=== PATIENT | female | born 1970 | race Hispanic/Latino ===

== ENCOUNTER 2019-12-11 02:43 | Emergency (ER) | payer OTHER, SELFPAY ==
--- NOTE | ~2019-12-11 | CT_ITS ---
EXAMINATION: CT abdomen pelvis w con DATE: 12/11/2019 04:36 INDICATION: Right lower quadrant abdominal pain. TECHNIQUE: Computed tomography (CT) of the abdomen and pelvis was performed with 100 mL Omnipaque 350 intravenous contrast. Automated exposure control and iterative reconstruction technique were employe d. The dose-length product was 641.30 mGy-cm. COMPARISON: None. FINDINGS: The visualized portions of the lung bases demonstrate mild atelectasis. No pleural effusion . The heart size is normal. No pericardial effusion. There is a 7 mm cyst in the liver. The gallbladd er, spleen, pancreas, and right adrenal gland are normal. There is a 1.6 cm mass in left adrenal glan d measuring soft tissue attenuation. There are cysts in the kidneys measuring up to 1.3 cm on the rig ht. There is a delayed right-sided contrast nephrogram. There is mild right hydronephrosis and hydrou reter. There is asymmetric edema retrograde kidney. There is a 3 mm stone in distal right ureter. The re is an umbilical hernia containing fat. The periuterine veins and left ovarian vein are enlarged, c onsistent with pelvic venous insufficiency. There are no dilated loops of bowel. The appendix is norm al. There are no pathologically enlarged lymph nodes. There is no free intraperitoneal fluid. IMPRESSION: 1. 3 mm stone in distal right ureter with mild right hydronephrosis and hydroureter. 2. 1.6 cm left adrenal mass. In the absence of known malignancy, this finding is likely an adenoma. Reviewed, dictated and finalized at location A. IMPRESSION: 1. 3 mm stone in distal right ureter with mild right hydronephrosis and hydrour eter. 2. 1.6 cm left adrenal mass. In the absence of known malignancy, this finding i s likely an adenoma.
[2019-12-11 02:48] VITALS: BP 143/81; PULSE 69; TEMP 36.3; O2SAT 100
--- NOTE | 2019-12-11 03:50 | ED.ABDPAIN ---
HPI - Abdominal Pain General Chief Complaint: Abdominal Pain Stated Complaint: r flank pain Time Seen by Provider: 12/11/19 03:45 History of Present Illness HPI narrative: Patient presents with her for right lower abdominal pain since yesterday. She vomited and had sweats at that time. She has had no fever. She has not had this abdominal pain before. She has not had an abdominal surgery. She gauges the pain at 8 out of 10. Associated with nausea and vomiting but not diarrhea. She does not take any prescription medication. The only surgery was a uterine ablation. She does not smoke she rarely drinks, and she does not do marijuana. 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 MD elicited complaint: abdominal pain Pertinent past history: none Onset (ago): day(s) Pain Consistency: constant Location: RLQ Severity: severe Related Data Allergies Allergy/AdvReac Type Severity Reaction Status Date / Time No Known Allergies Allergy Verified 12/11/19 02:51 Review of Systems Review of Systems: Narrative: CONSTITUTIONAL: Denies fever, chills, did have sweats. EYES: Denies visual changes, redness, or discharge. ENT: Denies rhinorrhea, congestion, sore throat, or otalgia. CARDIOVASCULAR: Denies chest pain, palpitations, or edema. RESPIRATORY: Denies cough or dyspnea. GASTROINTESTINAL: She has abdominal pain, nausea, vomiting, but not diarrhea. GENITOURINARY: Denies dysuria or hematuria. SKIN: Denies rash or itching. MUSCULOSKELETAL: Denies back pain, joint pain, or myalgia. NEUROLOGIC: Denies headache, numbness, or weakness. . PMFSH Past Medical History Medical History (Updated 12/11/19 @ 05:03 by Shannon Emery MD) History of dysfunctional uterine bleeding Right lower quadrant abdominal pain Social History Social History (Updated 12/11/19 @ 03:52 by Shannon Emery MD) Smoking status: Never smoker Alcohol intake: current Substance use: never Exam Narrative: Exam Narrative: GENERAL: Well-appearing, well-nourished, and in no acute distress. Zayra lady. HEAD: Normocephalic, atraumatic. EYES: PERRLA and EOMI. ENT: Nares clear, no rhinorrhea or epistaxis. Mucous membranes moist. NECK: Supple. CHEST: Clear to auscultation. No respiratory distress. HEART: Regular rate and rhythm. No murmur heard. Normal peripheral pulses. ABDOMEN: Soft, tenderness in the right lower quadrant, nondistended, normal active bowel sounds. EXTREMITIES: Normal range of motion. No edema. SKIN: Warm, dry, no rash. NEURO: No focal deficits. Alert and oriented x3. PSYCH: Normal mood and affect. Course Reevaluation(s) Reevaluation #1: Went in to tell the patient about her 5 mm kidney stone at the bladder junction. She has never had a kidney stone before. She said she still in a lot of pain. Date: 12/11/19 Time: 05:01 Reevaluation #2: Went back into check on the patient and she is feeling better. I explained how to strain the urine for the stone. She is to take the stone to the urologist next week. Date: 12/11/19 Time: 06:00 Vital Signs Vital signs: Vital Signs Temperature 97.4 F L 12/11/19 02:48 Pulse Rate 69 12/11/19 02:48 Blood Pressure 143/81 H 12/11/19 02:48 Pulse Oximetry 100 12/11/19 02:48 Temperature 97.4 F L 12/11/19 02:48 Pulse Rate 53 L 12/11/19 05:15 Respiratory Rate 18 12/11/19 05:15 Blood Pressure 126/74 12/11/19 05:15 Pulse Oximetry 97 12/11/19 05:15 MDM - Abdominal Pain Medical Records Attestation: I reviewed the patient's medical records. Lab Data Attestation: I reviewed the patient's lab results. Result diagrams: 12/11/19 03:00 12/11/19 03:00 Labs: Lab Results 12/11/19 12/11/19 12/11/19 Range/Units 03:00 03:00 03:49 WBC 15.8 H (4.5-10.0) K/mm3 RBC 4.73 (4.2-5.4) M/mm3 Hgb 13.9 (12.0-15.0) g/dL Hct 41.6 (37.0-47.0) % MCV 87.9 (80-100) fl MCH 29.4 (26-34) pg MCHC 33.4 (32-36) g/dl RDW 12.0 (11.5-14.5) % Plt Count
[2019-12-11] MEDS: MORPHINE SULFATE 4 MG/ML INJ IV PUSH ×2 (03:55→05:11)
[2019-12-11] MEDS: SODIUM CHLORIDE 0.9% IV 1,000 ML 999 ML IV CONT ×2 (03:55→05:10)
[2019-12-11] MEDS: ONDANSETRON INJ 4 MG/2 ML VIAL IV PUSH (03:55)
[2019-12-11 04:00] LABS: Basophils Percent Auto 0.3 % (0.2-1.2); Hematocrit 41.6 % (37.0-47.0); Hemoglobin 13.9 g/dL (12.0-15.0); Immature Granulocyte Absolute 0.06 K/mm3 (0.00-0.031); Immature Granulocyte Percent A 0.4 % (0-0.5); Lymphocytes Absolute Auto 0.86 K/mm3 (0.9-3.2); Lymphocytes Percent Auto 5.4 % (18.3-44.2); Mean Corpuscular HGB Conc 33.4 g/dl (32-36); Mean Corpuscular Hemoglobin 29.4 pg (26-34); Mean Corpuscular Volume 87.9 fl (80-100); Mean Platelet Volume 10.7 fl (7.4-10.4); Monocytes Absolute Auto 0.4 K/mm3 (0.1-0.6); Monocytes Percent Auto 2.3 % (2.6-8.5); Neutrophils Absolute Auto 14.5 K/mm3 (1.3-6.7); Neutrophils Percent Auto 91.6 % (45.5-73.1); Platelet Count Result 245 k/mm3 (150-375); Red Blood Count 4.73 M/mm3 (4.2-5.4); White Blood Count 15.8 K/mm3 (4.5-10.0)
[2019-12-11 04:10] LABS: Add Urine Microscopic? YES; Appearance Urine Clear (Clear); Bacteria Urine Trace /hpf; Bilirubin Urine Negative (Negative); Color Urine Yellow (Yellow); Glucose Urine UA Negative (Negative); Ketones Urine Negative (Negative); Leukocyte Esterase Ur 2+ LEU/UL (Negative); Mucus Urine Rare /lpf; Nitrate Urine Negative (Negative); Protein Urine Negative (Negative); Squamous Epithelial Cell Urine Many /hpf (Few); WBC Urine 16-20 /hpf
[2019-12-11 04:13] LABS: Blood Urea Nitrogen 18 mg/dL (7-17); Calcium 9.6 mg/dL (8.4-10.2); Carbon Dioxide 26 mmol/L (22-30); Chloride 101 mmol/L (98-107); Estimated Glomerular Filt Rate > 60; Glucose 164 mg/dL (65-105); Sodium 137 mmol/L (137-145)
[2019-12-11 04:36] LABS: Blood Urine Negative (Negative)
[2019-12-11] MEDS: TAMSULOSIN HCL 0.4 MG CAPSULE PO (05:11)
[2019-12-11 05:15] VITALS: BP 126/74; PULSE 53; RESP 18; O2SAT 97
[2019-12-11 06:20] VITALS: BP 111/71; PULSE 52; RESP 16; O2SAT 97
== END 2019-12-11 06:21 | disposition home or self-care (01) ==
PROVIDERS: Emergency Provider Emergency Medicine; PCP Family Medicine
DX: N13.2 Hydronephrosis with renal and ureteral calculous obstruction (principal)
CPT/HCPCS: 36415; 74177; 80048; 81001; 81025; 85025; 87077; 87086; 87088; 96361; 96365; 96375; 96376; 99284; A9270; J0696; J2270; J2405; J7030; Q9967

== ENCOUNTER 2019-12-20 07:41 | Outpatient (CLI) | payer OTHER, SELFPAY ==
--- NOTE | ~2019-12-20 | CT_ITS ---
EXAMINATION: CT abdomen pelvis wo con DATE: 12/20/2019 08:16 INDICATION: Right-sided abdominal pain, possible right ureteral calculus TECHNIQUE: Computed tomography (CT) of the abdomen and pelvis was performed without intravenous contr ast. Automated exposure control and iterative reconstruction technique were employed. Exam dose: 212 .07 mGy-cm total exam DLP. COMPARISON: None. FINDINGS: The lung bases are clear of infiltrate or consolidation. Normal heart size. No pericardial or pleural effusion. No hepatic, splenic, pancreatic, right adrenal or left or right renal mass lesion is evident. Hypoattenuating approximately 11.5 mm left adrenal mass is most likely an adrenal adenoma. There is n ow known malignancy. The gallbladder is present. No bile duct or pancreatic duct dilatation. No ureteral calculus or hydroureteronephrosis. Normal caliber of the abdominal aorta. No intraperitoneal or retroperitoneal or pelvic mass lesion or adenopathy or ascites. The urinary bladder, uterus and adnexal areas are unremarkable. Normal appendix. No bowel obstruction, bowel wall thickening, pneumatosis or intraperitoneal free air . 2.3 cm wide by 2.7 cm AP and 1.6 cm vertical dimension fat-containing umbilical hernia. There is a 10.6 mm osteosclerotic lesion of the left ilium 1.5 cm above the lateral aspect of the lef t hip joint, statistically most likely a bone island. IMPRESSION: No urinary tract calculus or hydroureteronephrosis. Normal appendix. Reviewed, dictated and finalized at Location [facility]. Reviewed, dictated and finalized at location B.
--- NOTE | ~2019-12-20 | XR_ITS ---
EXAMINATION: XR abdomen/kub 1V EXAM DATE: 12/20/2019 08:08 INDICATION: Right ureteral stone. TECHNIQUE: Frontal projection(s) of the abdomen for interpretation. Comparison is made to prior exami nation from 12/11/2019. FINDINGS: There are 2 right pelvic calcifications which are believed to be phleboliths. 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 There is no calcification in this location on today's x-ray, patient's previously seen right UVJ stone may have passed (please correlate with prior CT report). Nonobstructive bowel gas pattern. Sclerotic focus over left ischium probably bone island. IMPRESSION: Pelvic calcifications which are most likely phleboliths. Have patient's symptoms resolve d? Reviewed, dictated and finalized at location A. IMPRESSION: Pelvic calcifications which are most likely phleboliths. Have yosef ent's symptoms resolved?
== END 2019-12-20 07:42 | disposition home or self-care (01) ==
PROVIDERS: PCP Family Medicine; Visit Provider Nurse Practitioner Adult Health
DX: N20.1 Calculus of ureter (principal)
CPT/HCPCS: 74018; 74176

== ENCOUNTER 2020-01-26 00:27 | Outpatient (CLI) | payer OTHER, SELFPAY ==
[2020-01-26 18:19] LABS: SARS-CoV-2 RNA PCR Negative
== END 2020-01-26 00:28 | disposition home or self-care (01) ==
LOC: ANHCOVIDDT 00:28
PROVIDERS: PCP Family Medicine; Visit Provider Surgery
DX: Z01.812 Encounter for preprocedural laboratory examination (principal); Z20.828 Contact with and (suspected) exposure to other viral communicable diseases
CPT/HCPCS: 87635; C9803; U0003

== ENCOUNTER 2020-01-28 01:00 | Day surgery (SDC) | payer OTHER, SELFPAY ==
[2020-01-17 14:36] VITALS: BMI 25.7
[2020-01-28] VITALS (8 sets, daily range): BP systolic 100–133; BP diastolic 61–80; PULSE 48–74; RESP 12–18; TEMP 36.6–37; O2SAT 98–100
--- NOTE | 2020-01-28 13:15 | WPDANESEPPF ---
Anes - Initial Pre Proc Eval Procedure: Operation Date: 01/28/20 14:30 Proposed Procedures p Umbilical Hernia Repair, Possible Mesh - Igor Nguyen DO Date/Time: 01/28/20 13:15 Surgeon: Igor Nguyen DO Pre Op Diagnosis: umbilical hernia Patient Data Age: 49 Gender: F Height: 5 ft 3 in Weight: 69.9 kg Allergies Allergy/AdvReac Type Severity Reaction Status Date / Time No Known Allergies Allergy Verified 01/28/20 12:43 Home Medications Medication Instructions Recorded Confirmed Type cetirizine [Aller-Chelsey] 10 mg PO DAILY PRN 01/17/20 01/28/20 History Patient hx anesthesia problems: none Family hx anesthesia problems: none [facility] Past Medical History Medical History (Updated 01/28/20 @ 13:14 by Adarsh Wynn MD) Irritable bowel syndrome without diarrhea Right lower quadrant abdominal pain Surgical History Surgical History History of dysfunctional uterine bleeding History of nasal surgery Social History Social History Smoking status: Never smoker Alcohol intake: current Drinks per week: 1 Substance use: never Substance use type: does not use Living arrangements: with family 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 Questions were solicited and answers provided to the satisfaction of the patient/family/POA.
[2020-01-28] MEDS: LACTATED RINGERS 1,000 ML 30 ML IV CONT ×2 (13:21→14:42)
[2020-01-28] MEDS: ACETAMINOPHEN 500 MG TABLET 1000 MG PO (13:22)
[2020-01-28] MEDS: KETOROLAC 15 MG/ML VIAL (*BKC) IV PUSH (13:23)
[2020-01-28] MEDS: SCOPOLAMINE 1.5 MG PATCH TRANSDERM (13:23)
--- NOTE | 2020-01-28 13:44 | PM.IMHP ---
H&P: HPI History of Present Illness Date/Time: 01/28/20 13:44 Chief complaint: umbilical hernia Narrative: Anastacia Rasheed is a 49 year old female who presents with an umbilical hernia. Review of Systems Review of Systems: All systems reviewed & are unremarkable except as noted in HPI and below Constitutional: Constitutional: Denies chills, Denies fever(s), Denies headache(s) and Denies weight loss Eyes: Eyes: Denies change in vision ENT: Denies dizziness, Denies headache(s), Denies neck mass and Denies throat swelling Cardiovascular: Cardiovascular: Denies chest pain, Denies lightheadedness and Denies dyspnea Respiratory: Respiratory: Denies cough, Denies dyspnea and Denies wheezing Gastrointestinal: Gastrointestinal: Denies abdominal pain, Denies change in bowel habits, Denies nausea and Denies vomiting Genitourinary: Genitourinary: Denies hematuria and Denies dysuria Musculoskeletal: Musculoskeletal: Reports as per HPI Integumentary/Breasts: Skin/Breast: Reports as per HPI Neurologic: Denies dizziness and Denies headache(s) Allergic/Immunologic: Allergic/Immunologic: Denies throat swelling and Denies wheezing [facility] Past Medical History Medical History Irritable bowel syndrome without diarrhea Right lower quadrant abdominal pain Surgical History Surgical History History of dysfunctional uterine bleeding History of nasal surgery Family History Family History Other Cancer Social History Social History Smoking status: Never smoker Alcohol intake: current Drinks per week: 1 Substance use: never Substance use type: does not use Living arrangements: with family 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 Gender identity (if verbalized by the patient): Female Spiritual care concerns: No Meds Home Medications and Allergies Home Medications Medication Instructions Recorded Confirmed Type cetirizine [Aller-Chelsey] 10 mg PO DAILY PRN 01/17/20 01/28/20 History Allergies Allergy/AdvReac Type Severity Reaction Status Date / Time No Known Allergies Allergy Verified 01/28/20 12:43 Vital Signs Vital Signs - 24 hr 01/28/20 13:39 Temperature 37.0 C Pulse Rate 65 Respiratory Rate 16 Blood Pressure 122/76 Pulse Oximetry 100 Exam Const: General: no acute distress and alert Orientation/consciousness: patient oriented x3 HENMT: Head: normocephalic and atraumatic Ears: hearing grossly normal bilaterally General nose exam: Normal nares present Mouth: Yes Normal oral and palatal mucosa present Eyes: Periorbital: periorbital findings normal Sclera: sclerae normal EOM: EOMs intact bilaterally Neck: Neck: normal visual inspection, no lymphadenopathy and trachea midline Chest: Chest palpation & inspection: normal inspection of the chest Resp: Effort & Inspection: normal respiratory effort Auscultation: clear to auscultation bilaterally Cardio: Jugular venous distension: no JVD Rate: regular rate Rhythm: regular rhythm Heart sounds: S1 normal heart sound present and S2 normal heart sound present Peripheral pulses: Peripheral pulses 2+ throughout GI: Inspection: normal to inspection GI Palp: Yes Soft to palpation, No Tenderness to palpation present (GI), No Guarding due to palpation present (GI), Yes Hernia present (1cm umbilical hernia) and No Rebound tenderness present Percussion: Yes normal to percussion Auscultation: normal bowel sounds : General: Yes no CVA tenderness Back/Spine/Pelvis: Back: no CVA tenderness Neuro: General: patient oriented x3, no focal motor deficits and CN's II-XI intact bilaterally Cognition (Neuro): normal cognition Speech: normal speech Motor exam (neuro): 5/5 motor strength present throughou
[2020-01-28] MEDS: ceFAZolin 2 GM/D5W 50 ML 2 GM/50 ML BAG IVPB (13:55)
[2020-01-28] MEDS: BUPIVACAINE/EPINEPHRINE 0.5% 30 ML VIAL INFILTRATE (14:09)
--- NOTE | 2020-01-28 14:36 | PM.PROC ---
Procedure Note - Detailed Date of procedure: 01/28/20 Pre-op diagnosis: umbilical hernia Post-op diagnosis: other (Incarcerated umbilical hernia) Procedure performed: Incarcerated umbilical hernia repair Description of procedure: Procedure as well as risks, benefits, and alternatives were discussed with the patient. Written consent was obtained and placed in chart prior to procedure. Patient was brought back to surgical suite. She was placed supine on operating table. she was then intubated by Anesthesia Department. her abdomen was prepped and draped in sterile fashion using chlorhexidine prep. 0.5% bupivacaine with epinephrine was infiltrated locally around the operative area. A 3 cm curvilinear incision was made just inferior to the umbilicus using a 15 blade scalpel. Electrocautery was used for hemostasis and for dissection down through the subcutaneous fat. Hernia sac was encountered and this was carefully freed up from surrounding subcutaneous fat using electrocautery. The hernia sac was freed up all the way down to the level of the fascia, and then it was transected using electrocautery. The hernia sac was excised and sent to the lab for pathology. The umbilical stalk was then lifted off of the fascia with electrocautery. The hernia defect was then measured. This was measuring approximately 5 mm. The decision was made to repair the hernia primarily without mesh. The fascia of the hernia defect was reapproximated using 0 Ethibond [id number] sutures. a total of 3 sutures were placed transversely. The repair was inspected and appeared secure. 0.5% bupivacaine with epinephrine was infiltrated around the fascia and subcutaneous space. The umbilical stalk was then reapproximated to the fascia using a 3 0 Vicryl simple interrupted suture. The deep dermis was reapproximated using 3 0 Vicryl simple interrupted sutures, and then the skin was approximated using 4 Monocryl running subcuticular suture. Exofin glue was then applied on top. The patient was then awakened from anesthesia, extubated, and transferred to recovery. Anesthesia: GLMA and local (0.5% bupivacaine with epinephrine) Surgeon: Igor Nguyen DO Estimated blood loss (mL): 5 Pathology: yes (Hernia sac) Complications: No immediate complications Condition: stable Disposition: same day Findings: Anastacia is a 49 y/o female who presents with an umbilical hernia. She reports first experiencing symptoms that started about 16 years ago. She has been dealing with kidney stones for the last few weeks and a recent CT showed a hernia. CT abd/pelvis w/o contrast was done at on 12/20/19 and showed a 2.3cm wide by 2.7cm AP and 1.6cm vertical dimension fat containing umbilical hernia. Discussions were made with the patient about treatment options and decision was made to proceed with umbilical hernia repair with possible mesh. Incarcerated umbilical hernia was identified. The hernia contained incarcerated preperitoneal fat. The hernia sac and incarcerated fat was excised using electrocautery. The hernia defect only measured approximately 5 mm at the level of the fascia. Decision was made to repair this primarily using 0 Ethibond [id number] sutures. A total of 3 sutures placed transversely to approximate the fascia. This did not appear to be under undue tension. The hernia sac was sent to the lab for pathology.
== END 2020-01-28 16:40 | disposition home or self-care (01) ==
PROVIDERS: PCP Family Medicine; Visit Provider Surgery
PROC: (CPT 49587; principal; 2020-01-28 14:30)
DX: K42.0 Umbilical hernia with obstruction, without gangrene (principal)
CPT/HCPCS: 49587; 88300; A9270; J0690; J1100; J1885; J2250; J2405; J2704; J3010; J7120

== ENCOUNTER 2020-05-24 10:42 | Outpatient (CLI) | payer OTHER, SELFPAY ==
--- NOTE | ~2020-05-24 | MM_ITS ---
EXAMINATION: MM screening rodríguez BI w lloyd HISTORY: Screening mammogram TECHNIQUE: Craniocaudal and mediolateral oblique 3-D tomosynthesis images were obtained and synthetic 2-D images were generated. CAD analysis was submitted and interpreted. COMPARISON: No prior mammogram is available for comparison at this institution. BREAST PARENCHYMAL COMPOSITION: The breasts are heterogeneously dense, which may obscure small masses . FINDINGS: There is no evidence of suspicious mass, calcification, or architectural distortion to sugg est malignancy in either breast. There has been no suspicious interval change. IMPRESSION: 1. No mammographic evidence of malignancy. 2. Recommend routine screening mammography in one year. BI-RADS Category 1: Negative Reviewed, dictated and finalized at location A. 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
== END 2020-05-24 10:43 | disposition home or self-care (01) ==
LOC: ANHIMG 10:45
PROVIDERS: PCP Family Medicine
DX: Z12.31 Encounter for screening mammogram for malignant neoplasm of breast (principal)
CPT/HCPCS: 77063; 77067

== ENCOUNTER → 2020-08-10 07:38 | Outpatient (CLI) | payer OTHER, SELFPAY ==
--- NOTE | ~2020-08-10 | MR_ITS ---
EXAMINATION: MR knee RT wo con DATE: 08/10/2020 08:18 INDICATION: Right knee pain. TECHNIQUE: Magnetic resonance imaging (MRI) of the right knee was performed without intravenous contr ast. Sequences included axial PD-weighted FS FSE, coronal PD-weighted FSE and PD-weighted FS FSE, sag ittal PD-weighted FSE, and sagittal T2-weighted FS FSE. COMPARISON: Right knee radiographs 06/15/2020 FINDINGS: Medial compartment: There is an undersurface horizontal tear of body and posterior horn of medial meniscus. There is shal low partial-thickness cartilage loss of tibial condyle laterally. There is cartilage surface irregula rity of femoral condyle laterally. Lateral compartment: The lateral meniscus is normal. The lateral compartment cartilage is normal. Patellofemoral compartment: The patellar cartilage is normal. Trochlear cartilage is normal. Ligaments and tendons: Anterior and posterior cruciate ligaments are normal. Medial collateral ligament is normal. There are changes of prior sprain of fibular collateral ligament characterized by thickening and increased sig nal intensity proximally. There is mild patellar tendinopathy. Fluid: There is a small knee joint effusion. There is trace fluid in a Valiente's cyst. IMPRESSION: 1. Mild chondrosis of medial compartment. 2. Tear of medial meniscus. 3. Small knee joint effusion. Reviewed, dictated and finalized at location A. 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
== END ==
PROVIDERS: PCP Family Medicine; Visit Provider Orthopaedic Surgery
DX: M25.461 Effusion, right knee (principal); S83.241D Other tear of medial meniscus, current injury, right knee, subsequent encounter; X58.XXXD Exposure to other specified factors, subsequent encounter
CPT/HCPCS: 73721

== ENCOUNTER 2022-08-22 18:59 | Emergency (ER) | payer OTHER, SELFPAY ==
--- NOTE | 2022-08-22 19:07 | ED.FEMALEGU ---
HPI - Female Genitourinary General Chief complaint: Urogenital-Female Stated complaint: headache, nausea,diarrhea,uti Time Seen by Provider: 08/22/22 19:07 Source: patient and RN notes reviewed History of Present Illness HPI Narrative: Patient is a 52-year-old female presents to Urgent Care with her spouse with complaints of headaches, nausea, diarrhea and possible UTI to urinary frequency. Patient states it started approximately 24 hours ago and she has vomited 4 times with several loose stools. Patient has been drinking Pedialyte eating a bland diet and took Advil for the headache. Denies any other illness in the home. Denies any fevers. No other acute complaints. No acute distress noted. Patient aware of the plan of care. Some parts of this dictation were generated by voice recognition software and may contain typographical and/or grammatical inaccuracies. Related Data Home Medications Medication Instructions Recorded Confirmed omega 3 360 mg-dha 108 mg-epa 180 cap PO DAILY 12/21/21 mg-fish oil 1,200 mg capsule Allergies Allergy/AdvReac Type Severity Reaction Status Date / Time No Known Allergies Allergy Verified 12/21/21 10:34 Review of Systems Review of Systems: CONSTITUTIONAL: Denies fever, chills, or sweats. Reports of fatigue EYES: Denies visual changes, redness, or discharge. ENT: Denies rhinorrhea, congestion, sore throat, or otalgia. CARDIOVASCULAR: Denies chest pain, palpitations, or edema. RESPIRATORY: Denies cough or dyspnea. GASTROINTESTINAL: Reports nausea, vomiting, diarrhea GENITOURINARY: Reports of urinary frequency SKIN: Denies rash or itching. MUSCULOSKELETAL: Denies back pain, joint pain, or myalgia. NEUROLOGIC: Denies headache, numbness, or weakness. All other systems reviewed are negative, except as documented in HPI. 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 There is no relevant family history pertinent to the patient complaint. Exam Narrative: GENERAL: This is a well-nourished, well-developed patient, in no apparent distress. HEAD: normocephalic, atraumatic. EYES: PERRL. Sclera clear/white. Vision is grossly intact. EARS: External ears normal NOSE: External nose normal with no obvious nasal discharge, nares without redness, no rhinorrhea. THROAT: Mucous membranes moist NECK: Neck supple CARDIOVASCULAR: Regular rate and rhythm RESPIRATORY: Clear to auscultation. Breath sounds equal bilaterally. No wheezes, rales, or rhonchi. GASTROINTESTINAL: Abdomen soft, mild diffuse epigastric tenderness and lower abdominal tenderness, nondistended. Bowel sounds are hyper active. . No guarding. SKIN: warm, intact with no suspicious lesions or rash, good texture and turgor. NEURO: awake, alert, and oriented to person, place and time. There were no obvious focal neurologic abnormalities. EXTREMITIES: No clubbing, cyanosis, or edema. BACK: Negative CVA tenderness
[2022-08-22 19:09] VITALS: BP 102/86; PULSE 102; RESP 16; TEMP 37.2; O2SAT 98
== END 2022-08-22 19:41 | disposition home or self-care (01) ==
PROVIDERS: Emergency Provider Nurse Practitioner Family; PCP Family Medicine
DX: K52.9 Noninfective gastroenteritis and colitis, unspecified (principal); R35.0 Frequency of micturition
CPT/HCPCS: 81003; 87086; 99213; G0463

== ENCOUNTER 2022-09-06 11:22 | Emergency (ER) | payer OTHER, SELFPAY ==
--- NOTE | ~2022-09-06 | CT_ITS ---
EXAMINATION: CT abdomen pelvis wo con DATE: 09/06/2022 14:57 INDICATION: Right flank and lower quadrant pain TECHNIQUE: Computed tomography (CT) of the abdomen and pelvis was performed without intravenous contr ast. The dose-length product (DLP) was 225.95 mGy-cm. Automated exposure control and iterative recons truction technique were employed. COMPARISON: 12/20/2019 FINDINGS: Minimal dependent atelectasis is present in the lung bases. The heart size is normal. The l iver, spleen, pancreas, gallbladder, and right adrenal gland are normal. There is a 2.2 cm low-densit y mass of the left adrenal gland, consistent with an adenoma. There is a 9 mm cyst of the right kidne y. The left kidney is unremarkable. No pathologically enlarged abdominal or pelvic lymph nodes are id entified. No free intraperitoneal gas or evidence of bowel obstruction. The appendix is normal. IMPRESSION: 1. No CT correlate for the patient's symptoms. Reviewed, dictated and finalized at location A.
--- NOTE | ~2022-09-06 | US_ITS ---
EXAMINATION: US pelvic complete DATE: 09/06/2022 15:54 INDICATION: Lower abdominal pain TECHNIQUE: Multiple transabdominal and endovaginal sonographic images of the pelvis were obtained. COMPARISON: None. FINDINGS: The uterus measures 5.9 x 3.3 x 2.3 cm. The endometrial complex measures 12 mm. The right o vary is not visualized however no right adnexal abnormality is seen. The left ovary measures 1.4 x 1. 5 x 1.1 cm. There is normal vascular flow in the left ovary. There is no free fluid in the pelvis. IMPRESSION: 1. No sonographic correlate for the patient's symptoms. Reviewed, dictated and finalized at location B.
[2022-09-06 11:26] VITALS: BP 141/72; PULSE 58; RESP 18; TEMP 36.1; O2SAT 98
[2022-09-06 11:44] LABS: Basophils Absolute Auto 0.1 K/mm3 (0.0-0.1); Basophils Percent Auto 0.4 % (0.2-1.2); Eosinophils Percent Auto 0.1 % (0-4.4); Hematocrit 42.6 % (37.0-47.0); Hemoglobin 13.8 g/dL (12.0-15.0); Immature Granulocyte Absolute 0.06 K/mm3 (0.00-0.031); Immature Granulocyte Percent A 0.4 % (0-0.5); Lymphocytes Absolute Auto 1.14 K/mm3 (0.9-3.2); Mean Corpuscular HGB Conc 32.4 g/dl (32-36); Mean Corpuscular Hemoglobin 29.3 pg (26-34); Mean Corpuscular Volume 90.4 fl (80-100); Mean Platelet Volume 10.1 fl (7.4-10.4); Monocytes Absolute Auto 0.4 K/mm3 (0.1-0.6); Monocytes Percent Auto 2.5 % (2.6-8.5); Neutrophils Absolute Auto 12.6 K/mm3 (1.3-6.7); Neutrophils Percent Auto 88.6 % (45.5-73.1); Platelet Count Result 235 k/mm3 (150-375); Red Blood Count 4.71 M/mm3 (4.2-5.4); Red Cell Distribution Width 12.4 % (11.5-14.5); White Blood Count 14.3 K/mm3 (4.5-10.0)
[2022-09-06 11:50] LABS: Alanine Aminotransferase 27 U/L (6-35); Albumin Level 4.7 g/dL (3.5-5.1); Alkaline Phosphatase 105 U/L (38-126); Anion Gap 6 mmol/L (8-16); Aspartate Amino Transferase 25 U/L (14-36); Bilirubin,Total 0.7 mg/dL (0.2-1.3); Blood Urea Nitrogen 10 mg/dL (7-17); Calcium 9.3 mg/dL (8.4-10.2); Carbon Dioxide 30 mmol/L (22-30); Chloride 98 mmol/L (98-107); Estimated CRCL calculation 76 ml/min; Estimated Glomerular Filt Rate > 60; Glucose 135 mg/dL (65-110); Potassium 4.7 mmol/L (3.4-5.0); Sodium 134 mmol/L (137-145)
[2022-09-06 12:51] VITALS: BP 128/79; PULSE 63; RESP 16; O2SAT 98
[2022-09-06 13:36] LABS: Appearance Urine Cloudy (Clear); Bacteria Urine 4+ /hpf; Bilirubin Urine Negative (Negative); Blood Urine Negative (Negative); Color Urine Yellow (Yellow); Glucose Urine UA Negative (Negative); Ketones Urine 1+ mg/dL (Negative); Leukocyte Esterase Ur 2+ LEU/UL (Negative); Need Manual Microscopic Reviewed; Nitrate Urine Negative (Negative); Non Pathogenic Casts 0-2; Protein Urine Trace mg/dL (Negative); Specific Grav Ur 1.026 (1.001-1.035); Squamous Epithelial Cell Urine Many /hpf (Few); WBC Urine >100 /hpf; pH Urine 5.5 (5.0-9.0)
[2022-09-06 13:40] LABS: Add Urine Microscopic? YES
--- NOTE | 2022-09-06 15:17 | ED.ABDPAIN ---
HPI - Abdominal Pain General Chief Complaint: Abdominal Pain Stated Complaint: suspected kidney stones, flank pain Time Seen by Provider: 09/06/22 13:10 Source: patient Mode of arrival: ambulatory Limitations: no limitations History of Present Illness HPI narrative: Patient is a 52 y/o female who presents to the ED with c/o R flank and R sided abdominal pain. Patient reports having intermittent pain over the last 2 weeks. Over the last 2 days, the pain has become more severe. She notes a remote Hx of kidney stones and states the pain felt similar. She took one of her leftover hydrocodone last night and this morning for the pain. She developed N/V last night and reported having several episodes of emesis today, which prompted her presentation. Patient reports urinary frequency, but states she has been drinking increased amounts of water. She denies any fever, dysuria, hematuria, diarrhea, constipation, CP, SOB. Related Data Allergies Allergy/AdvReac Type Severity Reaction Status Date / Time No Known Allergies Allergy Verified 12/21/21 10:34 Review of Systems Review of Systems: CONSTITUTIONAL: Denies fever, chills, or sweats. CARDIOVASCULAR: Denies chest pain. RESPIRATORY: Denies dyspnea. GASTROINTESTINAL: See HPI. GENITOURINARY: See HPI. SKIN: Denies rash or itching. MUSCULOSKELETAL: See HPI. NEUROLOGIC: Denies headache, numbness, or weakness. All systems reviewed & are unremarkable except as noted in HPI and below PMFSH Past Medical History Medical History Irritable bowel syndrome without diarrhea Knee pain, right Right lower quadrant abdominal pain Surgical History Surgical History History of dysfunctional uterine bleeding History of nasal surgery History of umbilical hernia repair 01/28/20 Family History Family History Other Cancer Social History Social History Smoking status: Never smoker Alcohol intake: current Drinks per week: 1 Substance use: never Substance use type: does not use Living arrangements: with family Occupation/Education: occupation 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 HEAD: Normocephalic, atraumatic. NECK: Supple. No adenopathy, no masses. RESPIRATORY: Airway patent, respirations nonlabored. Clear to auscultation bilaterally, no rales, rhonchi, wheezing. CARDIOVASCULAR: Regular rate and rhythm without murmurs, rubs, or gallops. Radial pulses 2+ and equal bilaterally. ABDOMINAL: Soft, tenderness in RLQ and LLQ, nondistended, no hepatosplenomegaly. Normoactive BS. No significant CVA tenderness to percussion. MUSCULOSKELETAL: Moves all extremities. Strength/ROM intact without gross deformities. Mild tenderness in right lower lumbosacral region. No midline spinal tenderness. SKIN: Warm, dry, normal color. No rashes. NEURO: A&O X3. Speech clear. Cranial nerves II-XII grossly intact. Steady gait. No ataxic movements. PSYCHIATRIC: Appropriate mood and affect. Normal interaction. Course Vital Signs Vital signs: Vital Signs Temperature 97.0 F L 09/06/22 11:26 Pulse Rate 58 L 09/06/22 11:26 Respiratory Rate 18 09/06/22 11:26 Blood Pressure 141/72 H 09/06/22 11:26 Pulse Oximetry 98 09/06/22 11:26 Oxygen Delivery Room Air 09/06/22 11:26 Temperature 97.0 F L 09/06/22 11:26 Pulse Rate 53 L 09/06/22 16:47 Respiratory Rate 16 09/06/22 16:47 Blood Pressure 132/73 09/06/22 16:09 Pulse Oximetry 99 09/06/22 16:47 Oxygen Delivery Room Air 09/06/22 11:26 MDM - Abdominal Pain MDM Narrative Medical decision making
[2022-09-06] MEDS: SODIUM CHLORIDE 0.9% IV 1,000 ML 999 ML IV CONT (15:31)
[2022-09-06] MEDS: ONDANSETRON INJ 4 MG/2 ML VIAL IV PUSH (15:33)
[2022-09-06] MEDS: KETOROLAC 30 MG/ML VIAL (*BKC) IV PUSH (15:36)
[2022-09-06 16:09] VITALS: BP 132/73; PULSE 64; O2SAT 100
[2022-09-06 16:47] VITALS: PULSE 53; RESP 16; O2SAT 99
== END 2022-09-06 17:13 | disposition home or self-care (01) ==
PROVIDERS: Emergency Medicine; Emergency Provider Physician Assistant; PCP Family Medicine
DX: N30.01 Acute cystitis with hematuria (principal); R10.9 Unspecified abdominal pain; K58.9 Irritable bowel syndrome, unspecified; Z87.442 Personal history of urinary calculi
CPT/HCPCS: 36415; 74176; 76856; 80053; 81001; 85025; 87086; 87088; 96365; 96367; 96375; 99284; J0131; J0696; J1885; J2405; J7030

== ENCOUNTER 2023-10-07 16:13 | Outpatient (CLI) | payer OTHER, SELFPAY ==
--- NOTE | ~2023-10-07 | XR_ITS ---
EXAM: [id number] DATE: 10/07/2023 16:35 HISTORY: M54.2 - Cervicalgia, CHRONIC NECK PAIN RADIATES TO ARMS . COMPARISON: None available. FINDINGS: Craniocervical association and atlantoaxial joint are aligned. Mild degenerative change at the atlantodental interval. Mild reversal of the normal cervical lordosis centered at C5. No prevert ebral soft tissue swelling. Minimal retrolisthesis at C5-6. Vertebral body heights are maintained. No rmal disc spaces. Mild disc space narrowing at C4-5. Moderate narrowing and marginal osteophytosis at C5-6. Normal posterior elements. IMPRESSION: Grade 1 retrolisthesis and moderate degenerative disc disease at C5-6. Reviewed, dictated and finalized at location K. IMPRESSION: Grade 1 retrolisthesis and moderate degenerative disc disease at C5 -6.
== END 2023-10-07 16:14 | disposition home or self-care (01) ==
LOC: ANHIMG 16:15
PROVIDERS: PCP Family Medicine; Visit Provider Nurse Practitioner Family
DX: M43.12 Spondylolisthesis, cervical region (principal); M50.322 Other cervical disc degeneration at C5-C6 level
CPT/HCPCS: 72040

== ENCOUNTER 2023-10-23 07:59 | Outpatient (CLI) | payer OTHER, SELFPAY ==
--- NOTE | ~2023-10-23 | MR_ITS ---
MRI of the cervical spine Clinical History: Cervicalgia Technique: Axial T2-weighted and gradient images, and sagittal T1-weighted, T2-weighted, and STIR juana ges were acquired. Findings: There is no fracture or subluxation of the cervical spine. Vertebral bodies maintain normal height and alignment. No suspicious bone marrow signal abnormality seen. At C2-C3 and C3-C4, there is no disc bulge or herniation. No spinal canal stenosis, cord compression, or neural foraminal narrowing at these levels. At C4-C5, there is minimal disc osteophyte complex. No spinal canal stenosis, cord compression, or ne ural foraminal narrowing. At C5-C6, there is advanced degenerative disc narrowing with mild disc osteophyte complex. No nakul c anal stenosis or cord compression. Probable mild right neural foraminal narrowing. Left neural forame n preserved. At C6-C7, there is no disc bulge or herniation. No spinal canal stenosis, cord compression, or neural foraminal narrowing. No abnormal signal seen in the spinal cord. Paravertebral soft tissues are unremarkable. Impression: Mild to [id number] degenerative spondylosis at C5-C6, as detailed above. Reviewed, dictated and finalized at [facility]. Impression: Mild to [id number] degenerative spondylosis at C5-C6, as detailed above.
== END 2023-10-23 08:00 ==
LOC: MICIMG 08:00
PROVIDERS: PCP Nurse Practitioner Family; Visit Provider Nurse Practitioner Family
DX: M54.12 Radiculopathy, cervical region (principal); M50.322 Other cervical disc degeneration at C5-C6 level
CPT/HCPCS: 72141